=== PATIENT | male | born 1960 | race Caucasian/White ===

== ENCOUNTER 2024-08-26 15:08 | Emergency (ER) | payer MEDICARE, OTHER ==
[~2024-08-26] VITALS: Ht 177.8 cm; Wt 97.1 kg
[2024-08-26 15:59] VITALS: TEMP 98
[2024-08-26] MEDS ORDERED: ACETAMINOPHEN ES 500 MG TABLET ONE (18:31)
[2024-08-26] MEDS ORDERED: KETOROLAC TROMETHAMINE 15 MG/ML VIAL ONE (18:31)
[2024-08-26] MEDS ORDERED: LIDOCAINE 5% (PATCH) 1 EA PATCH TP ONE (18:31)
[2024-08-26] MEDS ORDERED: ACET-2030 PO (18:32)
[2024-08-26] MEDS ORDERED: LIDO30AD10 TP (18:32)
[2024-08-26] MEDS ORDERED: KETO10TA2 PO (18:32)
[2024-08-26] MEDS: ACETAMINOPHEN ES 500 MG TABLET PO ONE (18:33)
[2024-08-26] MEDS: LIDOCAINE 5% (PATCH) 1 EA PATCH TP SCH (18:34)
[2024-08-26] MEDS: KETOROLAC TROMETHAMINE 15 MG/ML VIAL IV ONE (18:34)
[2024-08-26 18:52] VITALS: BP 141/67; O2SAT 100
== END 2024-08-26 18:53 | disposition home or self-care (01) ==
LOC: ER 15:28
DX: G89.29 Other chronic pain (principal); M54.59 Other low back pain; Z59.01 Sheltered homelessness
CPT/HCPCS: 99283; 96374; J1885